=== PATIENT | male | born 1995 | race African-American/Black ===

== ENCOUNTER 2020-01-17 12:05 | Emergency (ER) | payer MEDICAID, OTHER ==
[~2020-01-17] VITALS: Ht 175.3 cm; Wt 63.6 kg
[2020-01-17] MEDS ORDERED: IV NORMAL SALINE 1000ML BAG 1,000 ML IV SCH (13:12)
[2020-01-17 13:38] LABS: BASO % 1 % (0-3); EOS % 1 % (0-3); HEMATOCRIT 43.1 % (39.0-53.0); HEMOGLOBIN 14.8 g/dL (13.0-17.5); LYMPH # 1.6 x10^3/uL (1.0-4.8); LYMPH % 25 % (24-48); MEAN CORPUSCULAR HEMOGLOBIN 34 pg (25-35); MEAN CORPUSCULAR HGB CONC 34 g/dL (31-37); MEAN CORPUSCULAR VOLUME 98 fL (79-100); MONO # 0.4 x10^3/uL (0.0-1.1); MONO % 7 % (0-9); NEUT # 4.2 x10^3/uL (1.8-7.7); NEUT % 67 % (31-73); PLATELET COUNT 244 x10^3/uL (140-400); RED BLOOD COUNT 4.39 x10^6/uL (4.30-5.70); WHITE BLOOD COUNT 6.3 x10^3/uL (4.0-11.0)
[2020-01-17 13:50] LABS: CALCIUM 9.2 mg/dL (8.5-10.1); CREATININE 0.8 mg/dL (0.7-1.3); POTASSIUM 3.8 mmol/L (3.5-5.1)
[2020-01-17 13:56] LABS: ALBUMIN 3.8 g/dL (3.4-5.0); TOTAL BILIRUBIN 1.1 mg/dL (0.2-1.0); TOTAL PROTEIN 7.5 g/dL (6.4-8.2)
[2020-01-17 14:05] LABS: BILIRUBIN,URINE NEGATIVE (NEG); CLARITY,URINE CLEAR; COLOR,URINE YELLOW; NITRITE,URINE NEGATIVE (NEG); PH,URINE 5.5 (<5.0-8.0); PROTEIN,URINE NEGATIVE (NEG-TRACE)
[2020-01-17 14:09] LABS: BACTERIA,URINE 0 /HPF (0-FEW); RBC,URINE RARE /HPF (0-2); WBC,URINE OCC /HPF (0-4)
[2020-01-17] MEDS ORDERED: IOHEXOL 300 MG/ML 100ML VIAL. IV ONE (14:30)
[2020-01-17] MEDS ORDERED: CONTRAST GIVEN. MC PRN (14:45)
--- NOTE | 2020-01-17 14:53 | RAD ---
CT abdomen and pelvis with contrast PQRS statement: CT scans at this facility use dose reduction including either automated exposure control, iterative reconstructions, and /or weight based radiation dosing via mA and kV modification when appropriate to reduce radiation dose to as low as reasonably achievable. Contrast: 75 mL Omnipaque 300 intravenous contrast. HISTORY: Abdominal pain and diarrhea. Abdomen findings: Indistinct 5 mm hypodense lesion with a small peripheral nodular focus of enhancement right hepatic lobe image 21 too small to characterize, may be a hemangioma given the peripheral nodular enhancement, in a young patient of this age of doubtful significance unless there are risk factors for malignancy, in which case further assessment with outpatient MR imaging could be considered. Gallbladder collapsed. Pancreas, kidneys, adrenal glands, spleen. Mild volume of stool within the large bowel. No bowel obstruction. The appendix is not definitively visualized likely obscured by surrounding collapsed small bowel loops. Vessels unremarkable. No abdominal fluid or adenopathy. Pelvis findings: Small volume of low-density dependent pelvic fluid. Pelvic bowel loops are present adjacent of the fluid. Pelvic phleboliths. Bladder, prostate, rectum and bones are unremarkable. No adenopathy. IMPRESSION: 1. Small volume of free fluid within the dependent pelvis. No clear etiology for this fluid can be identified although this is abnormal in a male patient indicated be indicative of an underlying inflammatory process. A low-grade enterocolitis as a source is a possibility given limited distention and mild diffuse wall thickening throughout the GI tract. 2. The appendix could not be identified likely obscured by surrounding collapsed small bowel loops in the lower abdomen. 3. Subcentimeter incidental liver lesion as described above. Electronically signed by: Freddy Manriquez MD (01/17/2020 2:50 PM) [id number]
--- NOTE | 2020-01-17 15:32 | PHYS DOC ---
Past Medical History Past Medical History: No Pertinent History Past Surgical History: Other Additional Past Surgical Histo: R ARM SX Smoking Status: Current Every Day Smoker Additional Information: 1/2 PK/DAY Alcohol Use: Occasionally General Adult EDM: Chief Complaint: ABDOMINAL PAIN HPI: HPI: Patient is a 24 year old male presented with epigastric abdominal pain off and on for a year. He has lost about 80 lbs in 8 months. No nausea or vomiting. Patient said it seems everything went through him when he ate. No fever, no diarrhea. NO COUGH,NO SHORTNESS OF AIR. Review of Systems: Review of Systems: Constitutional: Denies fever or chills. [] Eyes: Denies change in visual acuity. [] HENT: Denies nasal congestion or sore throat. [] Respiratory: Denies cough or shortness of breath. [] Cardiovascular: Denies chest pain or edema. [] GI: POSITIVE FOR abdominal pain, NO nausea, vomiting, bloody stools or diarrhea. [] : Denies dysuria. [] Musculoskeletal: Denies back pain or joint pain. [] Integument: Denies rash. [] Neurologic: Denies headache, focal weakness or sensory changes. [] Endocrine: Denies polyuria or polydipsia. [] Lymphatic: Denies swollen glands. [] Psychiatric: Denies depression or anxiety. [] Heart Score: Risk Factors: Risk Factors: DM, Current or recent (<one month) smoker, HTN, HLP, family history of CAD, obesity. Risk Scores: Score 0 - 3: 2.5% MACE over next 6 weeks - Discharge Home Score 4 - 6: 20.3% MACE over next 6 weeks - Admit for Clinical Observation Score 7 - 10: 72.7% MACE over next 6 weeks - Early Invasive Strategies Current Medications: Current Medications Medications (Trade) Dose Ordered Sig/Lisa Start Time Stop Time Status Last Admin Dose Admin Info (CONTRAST GIVEN -- Rx MONITORING) 1 each PRN DAILY PRN 01/17/20 14:45 01/19/20 14:44 Iohexol (Omnipaque 300 Mg/ml) 75 ml 1X ONCE 01/17/20 14:30 01/17/20 14:31 DC 01/17/20 14:36 75 ML Sodium Chloride 1,000 ml @ 1,000 mls/hr Q1H 01/17/20 13:12 01/17/20 14:11 DC 01/17/20 13:32 1,000 MLS/HR Allergies: Allergies: Allergies Coded Allergies Type Severity Reaction Last Updated Verified No Known Drug Allergies 01/17/20 No Physical Exam: PE: Constitutional: Well developed, well nourished, no acute distress, non-toxic appearance. [] HENT: Normocephalic, atraumatic, bilateral external ears normal, oropharynx moist, no oral exudates, nose normal. [] Eyes: PERRLA, EOMI, conjunctiva normal, no discharge. [] Neck: Normal range of motion, no tenderness, supple, no stridor. [] Cardiovascular:Heart rate regular rhythm, no murmur [] Lungs & Thorax: Bilateral breath sounds clear to auscultation [] Abdomen: Bowel sounds normal, soft, no tenderness, no masses, no pulsatile masses. [] Skin: Warm, dry, no erythema, no rash. [] Back: No tenderness, no CVA tenderness. [] Extremities: No tenderness, no cyanosis, no clubbing, ROM intact, no edema. [] Neurologic: Alert and oriented X 3, normal motor function, normal sensory function, no focal deficits noted. [] Psychologic: Affect normal, judgement normal, mood normal. [] Current Patient Data: Labs: Laboratory Tests Test 01/17/20 13:29 01/17/20 13:45 White Blood Count 6.3 x10^3/uL (4.0-11.0) Red Blood Count 4.39 x10^6/uL (4.30-5.70) Hemoglobin 14.8 g/dL (13.0-17.5) Hematocrit 43.1 % (39.0-53.0) Mean Corpuscular Volume 98 fL (79-100) Mean Corpuscular Hemoglobin 34 pg (25-35) Mean Corpuscular Hemoglobin Concent 34 g/dL (31-37) Red Cell Distribution Width 12.0 % (11.5-14.5) Platelet Count 244 x10^3/uL (140-400) Neutrophils (%) (Auto) 67 % (31-73) Lymphocytes (%) (Auto) 25 % (24-48) Monocytes (%) (Auto) 7 % (0-9) Eosinophils (%) (Auto) 1 % (0-3) Basophils (%) (Auto) 1 % (0-3) Neutrophils # (Auto) 4.2 x10^3/uL (1.8-7.7) Lymphocytes # (Auto) 1.6 x10^3/uL (1.0-4.8) Monocytes # (Auto) 0.4 x10^3/uL (0.0-1.1) Eosinophils # (Auto) 0.0 x10^3/uL (0.0-0.7) Basophils # (Auto) 0.0 x10^3/uL (0.0-0.2) Sodium Level 141 mmol/L (136-145) Potassium Level 3.8 mmol/L (3.5-5.1) Chloride Level 107 mmol/L (98-107) Carbon Dioxide Level 25 mmol/L (21-32) Anion Gap 9 (6-14) Blood Urea Nitrogen 9 mg/dL (8-26) Creatinine 0.8 mg/dL (0.7-1.3) Estimated GFR (Cockcroft-Gault) 145.0 BUN/Creatinine Ratio 11 (6-20) Glucose Level 95 mg/dL (70-99) Calcium Level 9.2 mg/dL (8.5-10.1) Total Bilirubin 1.1 mg/dL (0.2-1.0) H Aspartate Amino Transferase (AST) 17 U/L (15-37) Alanine Aminotransferase (ALT) 32 U/L (16-63) Alkaline Phosphatase 62 U/L (46-116) Total Protein 7.5 g/dL (6.4-8.2) Albumin 3.8 g/dL (3.4-5.0) Albumin/Globulin Ratio 1.0 (1.0-1.7) Lipase 83 U/L (73-393) Urine Collection Type Unknown Urine Color Yellow Urine Clarity Clear Urine pH 5.5 (<5.0-8.0) Urine Specific [place] 1.010 (1.000-1.030) Urine Protein Negative mg/dL (NEG-TRACE) Urine Glucose (UA) Negative mg/dL (NEG) Urine Ketones (Stick) Negative mg/dL (NEG) Urine Blood Negative (NEG) Urine Nitrite Negative (NEG) Urine Bilirubin Negative (NEG) Urine Urobilinogen Dipstick 1.0 mg/dL (0.2 mg/dL) Urine Leukocyte Esterase Negative (NEG) Urine RBC Rare /HPF (0-2) Urine WBC Occ /HPF (0-4) Urine Bacteria 0 /HPF (0-FEW) Urine Mucus Slight /LPF Laboratory Tests 01/17/20 13:29 Laboratory Tests 01/17/20 13:29 Vital Signs: Vital Signs Date Time Temp Pulse Resp B/P (MAP) Pulse Ox O2 Delivery O2 Flow Rate FiO2 01/17/20 13:16 98.8 74 16 122/63 (82) 99 Room Air 98.8 EKG: EKG: [] Radiology/Procedures: Radiology/Procedures: [][facility] [address] [place], [place] [id number] IMAGING REPORT Signed PATIENT: JACE MCCORMICK III ACCOUNT: [id number] : 1995 LOCATION: ER AGE: 24 SEX: M EXAM STATUS: REG ER ORD. PHYSICIAN: TYRONE STEWART DO REASON: ABDOMINAL PAIN, DIARRHEA PROCEDURE: CT ABD PELV W/ IV CONTRST ONLY CT abdomen and pelvis with contrast PQRS statement: CT scans at this facility use dose reduction including either automated exposure control, iterative reconstructions, and /or weight based radiation dosing via mA and kV modification when appropriate to reduce radiation dose to as low as reasonably achievable. Contrast: 75 mL Omnipaque 300 intravenous contrast. HISTORY: Abdominal pain and diarrhea. Abdomen findings: Indistinct 5 mm hypodense lesion with a small peripheral nodular focus of enhancement right hepatic lobe image 21 too small to characterize, may be a hemangioma given the peripheral nodular enhancement, in a young patient of this age of doubtful significance unless there are risk factors for malignancy, in which case further assessment with outpatient MR imaging could be considered. Gallbladder collapsed. Pancreas, kidneys, adrenal glands, spleen. Mild volume of stool within the large bowel. No bowel obstruction. The appendix is not definitively visualized likely obscured by surrounding collapsed small bowel loops. Vessels unremarkable. No abdominal fluid or adenopathy. Pelvis findings: Small volume of low-density dependent pelvic fluid. Pelvic bowel loops are present adjacent of the fluid. Pelvic phleboliths. Bladder, prostate, rectum and bones are unremarkable. No adenopathy. IMPRESSION: 1. Small volume of free fluid within the dependent pelvis. No clear etiology for this fluid can be identified although this is abnormal in a male patient indicated be indicative of an underlying inflammatory process. A low-grade enterocolitis as a source is a possibility given limited distention and mild diffuse wall thickening throughout the GI tract. 2. The appendix could not be identified likely obscured by surrounding collapsed small bowel loops in the lower abdomen. 3. Subcentimeter incidental liver lesion as described above. Electronically signed by: Alissa Manriquez MD (01/17/2020 2:50 PM) [id number] DICTATED and SIGNED BY: ALISSA MANRIQUEZ MD DATE: 01/17/20 1450 Course & Med Decision Making: Course & Med Decision Making Pertinent Labs and Imaging studies reviewed. (See chart for details) [] Dragon Disclaimer: Dragon Disclaimer: This electronic medical record was generated, in whole or in part, using a voice recognition dictation system. Departure Departure Impression: Primary Impression: Abdominal pain Disposition: HOME, SELF-CARE Condition: STABLE Referrals: NO PCP (PCP) MERARI DE LUNA MD please follow up with THIS GI SPECIALIST FOR FURTHER EVALUATION AND TREATMENT Patient Instructions: Abdominal Pain Scripts Omeprazole Magnesium (PRILOSEC OTC) 20 Mg Tablet. 1 TAB PO DAILY for 30 Days, #30 TAB 0 Refills Prov: TYRONE STEWART DO 01/17/20 Dicyclomine Hcl (DICYCLOMINE HCL) 10 Mg Capsule 1 CAP PO PRN Q6HRS PRN for ABDOMINAL CRAMPING, #30 CAP 3 Refills Prov: TYRONE STEWART DO 01/17/20 Justicifation of Admission Dx: Justifications for Admission: Justification of Admission Dx: N/A TYRONE STEWART DO Jan 17, 2020 15:32
[2020-01-17] MEDS ORDERED: DICY10CA3 PO (16:03)
[2020-01-17] MEDS ORDERED: OMEP20TA63 PO (16:03)
[2020-01-17 16:15] VITALS: BP 137/85
== END 2020-01-17 16:19 | disposition home or self-care (01) ==
LOC: ER 12:05
DX: R10.13 Epigastric pain (principal); F17.200 Nicotine dependence, unspecified, uncomplicated; Z98.890 Other specified postprocedural states
CPT/HCPCS: 36415; 74177; 80053; 81001; 83690; 85025; 87086; 99285; J7030; Q9967